=== PATIENT | female | born 1960 | race American Indian/Alaskan Native ===

== ENCOUNTER 2018-12-29 12:43 | Outpatient (CLI) | payer OTHER ==
--- NOTE | 2018-12-29 13:18 | XRay Report ---
Chest 2 views: History: Cough. Acute maxillary sinusitis. Findings: Normal cardiomediastinal silhouette. Trachea is midline. Ill-defined airspace opacities right lower lobe. Normal CP angles. Impression: Pneumonia right lower lobe.
== END 2018-12-29 12:44 | disposition home or self-care (01) ==
LOC: XRAY 12:43
PROVIDERS: ATTEND Family Medicine
DX: J18.9 Pneumonia, unspecified organism (principal); E66.9 Obesity, unspecified; E11.22 Type 2 diabetes mellitus with diabetic chronic kidney disease; I12.0 Hypertensive chronic kidney disease with stage 5 chronic kidney disease or end stage renal disease; N18.3 Chronic kidney disease, stage 3 (moderate)
CPT/HCPCS: 71046